=== PATIENT | female | born 1970 | race Caucasian/White ===

== ENCOUNTER 2020-06-17 14:33 | Outpatient (CLI) | payer MEDICAID ==
[~2020-06-17] VITALS: Ht 170.2 cm; Wt 73.9 kg
--- NOTE | 2020-06-17 15:45 | Consultation ---
DATE OF CONSULTATION: 06/17/2020 CONSULTING PHYSICIAN: Jett Morrow MD CHIEF COMPLAINT: Referral for screening colonoscopy. PAST MEDICAL HISTORY: None. PAST SURGICAL HISTORY: Lumpectomy, tonsillectomy, carpal tunnel surgery. MEDICATIONS: None. FAMILY HISTORY: Grandmother with breast cancer. Grandfather with pancreatic cancer. SOCIAL HISTORY: Patient denies any tobacco, alcohol, or drug abuse. ALLERGIES: No known drug allergies. REVIEW OF SYSTEMS: A 10-point review of systems was performed and was negative. PHYSICAL EXAMINATION: VITAL SIGNS: Stable. Afebrile HEENT: Normocephalic and atraumatic. Sclerae anicteric. NECK: Supple. No evidence of obvious lymphadenopathy. CARDIOVASCULAR: Regular rate and rhythm. Plus S1-S2. LUNGS: Clear to auscultation bilaterally. ABDOMEN: Positive bowel sounds. Soft and nontender. No rebound. No guarding. No peritoneal sign. EXTREMITIES: No cyanosis. No clubbing. No edema. ASSESSMENT AND PLAN: This is a 50-year-old female referred for screening colonoscopy. Patient was given instruction for the colonoscopy. Risks and benefits of procedure were explained to her. We will schedule her as soon as authorization is obtained. Jett Morrow M.D. DR: AMRIT JOB#: [id number] CC:
[2020-06-18 07:17] VITALS: BP 101/64
== END 2020-06-17 16:33 | disposition home or self-care (01) ==
LOC: PAN 14:33
DX: Z00.00 Encounter for general adult medical examination without abnormal findings (principal); Z80.3 Family history of malignant neoplasm of breast; Z80.8 Family history of malignant neoplasm of other organs or systems
CPT/HCPCS: G0463

== ENCOUNTER 2020-09-26 13:09 | Outpatient (CLI) | payer MEDICAID ==
--- NOTE | 2020-09-27 14:20 | General Progress Note ---
Subjective ROS Limited/Unobtainable: Yes Allergies: Coded Allergies: No Known Allergies (Unverified , 06/18/20) Objective General Appearance: alert EENT: normal ENT inspection Neck: supple Cardiovascular: normal rate Respiratory/Chest: lungs clear Abdomen: normal bowel sounds, non tender, soft Extremities: non-tender Assessment/Plan Assessment/Plan: s/p colonoscopy needs repeat colon in 5 years Jett Morrow MD Sep 27, 2020 14:20
== END 2020-09-26 14:40 | disposition home or self-care (01) ==
LOC: PAN 13:09
DX: Z09 Encounter for follow-up examination after completed treatment for conditions other than malignant neoplasm (principal)
CPT/HCPCS: 99212